=== PATIENT | male | born 1950 | race Caucasian/White ===

== ENCOUNTER → 2018-09-02 | Outpatient (CLI) | payer MEDICARE, BC | END | disposition home or self-care (01) | LOC: MRI 09:16 | PROVIDERS: ATTEND Internal Medicine Critical Care Medicine | DX: S83.241A Other tear of medial meniscus, current injury, right knee, initial encounter (principal); S83.242A Other tear of medial meniscus, current injury, left knee, initial encounter; M94.261 Chondromalacia, right knee; M67.462 Ganglion, left knee; X58.XXXA Exposure to other specified factors, initial encounter; Y93.89 Activity, other specified; Y92.89 Other specified places as the place of occurrence of the external cause; Y99.8 Other external cause status | CPT/HCPCS: 73721 ==

== ENCOUNTER 2018-11-15 05:13 | Day surgery (SDC) | payer MEDICARE, BC ==
[~2018-11-15] VITALS: Ht 182.9 cm; Wt 89.8 kg
[~2018-11-15 05:13] MED LIST: ALIS300T PO; ASPI-1393 PO; CLON0.2T PO; DILT360T13 PO; FURO40TA5 PO; MINO10TA PO; POTA20TA82 PO; PRED2.5T4 PO
[2018-11-15] MEDS ORDERED: LACTATED RINGERS 1,000 ML IV SCH (06:30)
[2018-11-15 06:40] LABS: INR 1.1; PARTIAL THROMBOPLASTIN TIME 33.1 sec (23.4-31.0)
[2018-11-15] MEDS ORDERED: BUPIVACAINE HCL 0.5% (5MG/ML) 50ML ONE (07:07)
[2018-11-15] MEDS ORDERED: SKIN ADHESIVE 0.7 GM EA TOP ONE (07:07)
[2018-11-15] MEDS ORDERED: FENTANYL CITRATE/PF 50MCG/ML 2ML VIAL ONE (07:16)
[2018-11-15] MEDS ORDERED: NEOSTIGMINE METHYLSULFATE 1MG/ML 10 ML VIAL ONE (07:17)
[2018-11-15] MEDS ORDERED: PROPOFOL 200MG/20ML VIAL IV ONE (07:17)
[2018-11-15] MEDS ORDERED: GLYCOPYRROLATE 0.2 MG/ML 2ML VIAL ONE ×3 (07:17→08:43)
[2018-11-15] MEDS ORDERED: MIDAZOLAM HCL 2 MG/2 ML VIAL ONE (07:17)
[2018-11-15] MEDS ORDERED: ROCURONIUM BROMIDE 10MG/ML VIAL 5ML IV ONE (07:17)
[2018-11-15] MEDS ORDERED: ONDANSETRON HCL 4MG/2ML INJ ONE (07:29)
[2018-11-15] MEDS ORDERED: DEXAMETHASONE 4MG/ML 1ML VIAL ONE (07:29)
[2018-11-15] MEDS ORDERED: MEPERIDINE HCL/PF 25MG/ML CPJ IV PRN (08:00)
[2018-11-15] MEDS ORDERED: HYDROMORPHONE HCL/PF 2MG/ML CPJ IV PRN (08:00)
[2018-11-15] MEDS ORDERED: ONDANSETRON HCL 4MG/2ML INJ IV PRN (08:00)
[2018-11-15] MEDS ORDERED: LABETALOL 5MG/ML SYR 20 MG/4 ML SYRINGE IV PRN (08:00)
[2018-11-15] MEDS ORDERED: HYDROMORPHONE HCL/PF 2MG/ML (OR) ONE (09:01)
== END 2018-11-15 11:15 | disposition home or self-care (01) ==
LOC: OR 05:13
PROVIDERS: ATTEND Surgery
DX: K40.90 Unilateral inguinal hernia, without obstruction or gangrene, not specified as recurrent (principal); I10 Essential (primary) hypertension; G47.33 Obstructive sleep apnea (adult) (pediatric); Z79.899 Other long term (current) drug therapy; Z88.5 Allergy status to narcotic agent; I44.1 Atrioventricular block, second degree
CPT/HCPCS: 36415; 49650; 80051; 85610; 85730; C1781; G0168; J1100; J1170; J2250; J2405; J2704; J2710; J3010; J3490

== ENCOUNTER → 2019-04-01 | Outpatient (CLI) | payer MEDICARE, BC | END | disposition home or self-care (01) | LOC: CT 07:53 | PROVIDERS: ATTEND Internal Medicine Critical Care Medicine | DX: N28.1 Cyst of kidney, acquired (principal); K40.90 Unilateral inguinal hernia, without obstruction or gangrene, not specified as recurrent; K91.30 Postprocedural intestinal obstruction, unspecified as to partial versus complete | CPT/HCPCS: 74176 ==

== ENCOUNTER → 2019-10-28 | Outpatient (CLI) | payer MEDICARE, BC ==
[~2019-10-28] MED LIST changes: -ASPI-1393 PO; +ASPI-1497 PO; +BARIUM SULFATE 450ML ORAL SUSP ONE
== END | disposition home or self-care (01) ==
LOC: CT 07:28 → EDBD 10:00
PROVIDERS: ATTEND Internal Medicine Critical Care Medicine
DX: J43.9 Emphysema, unspecified (principal); R10.9 Unspecified abdominal pain; R63.4 Abnormal weight loss; I25.10 Atherosclerotic heart disease of native coronary artery without angina pectoris; N28.1 Cyst of kidney, acquired; K40.00 Bilateral inguinal hernia, with obstruction, without gangrene, not specified as recurrent; K56.41 Fecal impaction
CPT/HCPCS: 74176

== ENCOUNTER → 2019-12-13 | Outpatient (CLI) | payer MEDICARE, BC ==
[~2019-12-13] MED LIST changes: -BARIUM SULFATE 450ML ORAL SUSP ONE
== END | disposition home or self-care (01) ==
LOC: LAB 07:18
PROVIDERS: ATTEND Internal Medicine Critical Care Medicine
DX: Z11.59 Encounter for screening for other viral diseases (principal); E04.9 Nontoxic goiter, unspecified
CPT/HCPCS: 87635

== ENCOUNTER → 2019-12-15 | Outpatient (CLI) | payer MEDICARE, BC | END | disposition home or self-care (01) | LOC: US 07:20 | PROVIDERS: ATTEND Internal Medicine Critical Care Medicine | DX: E04.1 Nontoxic single thyroid nodule (principal) | CPT/HCPCS: 76536 ==

== ENCOUNTER → 2022-12-29 | Outpatient (CLI) | payer MEDICARE, BC ==
[~2022-12-29] MED LIST changes: +POTA-205 PO; -POTA20TA82 PO
== END | disposition home or self-care (01) ==
LOC: RAD 10:41
PROVIDERS: ATTEND Internal Medicine Critical Care Medicine
DX: D86.9 Sarcoidosis, unspecified (principal)
CPT/HCPCS: 71046

== ENCOUNTER → 2023-03-02 | Outpatient (CLI) | payer MEDICARE, BC | END | disposition home or self-care (01) | LOC: RAD 10:43 | PROVIDERS: ATTEND Internal Medicine Critical Care Medicine | DX: Z01.818 Encounter for other preprocedural examination (principal) | CPT/HCPCS: 71046 ==

== ENCOUNTER → 2023-03-02 | Outpatient (CLI) | payer MEDICARE, BC ==
[2023-03-02 11:52] LABS: BASOPHILS % 0.9 % (0.0-2.0); EOSINOPHILS % 4.7 % (0.0-5.0); HEMOGLOBIN. 12.5 g/dL (14.0-18.0); LYMPHOCYTES % 36.6 % (20.0-50.0); MEAN CORPUSCULAR HEMOGLOBIN 27.4 pg (28.0-32.0); MEAN CORPUSCULAR HGB CONC 32.8 g/dL (31.0-37.0); MEAN CORPUSCULAR VOLUME 83.6 fL (80.0-94.0); MEAN PLATELET VOLUME 8.1 fl (7.4-10.4); MONOCYTES % 13.4 % (2.0-8.0); NEUTROPHILS % 44.4 % (40.0-76.0); PLATELET 176 x1000/uL (130-400); RED BLOOD CELL COUNT 4.55 mill/uL (4.7-6.1); RED CELL DISTRIBUTION WIDTH 14.1 % (11.6-14.6); WHITE BLOOD COUNT 4.4 x1000/uL (4.5-11.0)
[2023-03-02 12:00] LABS: PARTIAL THROMBOPLASTIN TIME 34.1 sec (23.4-31.0); PROTHROMBIN TIME 10.9 sec (9.6-11.0)
[2023-03-02 12:03] LABS: CHLORIDE 107 mEq/L (98-107); INDEX HEMOLYSI 1 (1-3); INDEX ICTERIC 1 (1-4); INDEX LIPEMIC 1 (1-3); POTASSIUM 3.6 mEq/L (3.5-5.1); SODIUM 141 mEq/L (136-145)
[2023-03-02 12:11] LABS: ALANINE AMINOTRANSFERASE 20 IU/L (13-61); ALBUMIN 4.4 g/dL (3.4-5.0); ASPARTATE AMINOTRANSFERASE 21 IU/L (15-37); BILIRUBIN TOTAL 0.8 mg/dL (0.1-1.0); CALCIUM 8.9 mg/dL (8.5-10.1); CARBON DIOXIDE 30 mEq/L (21-32); CREATININE 1.1 mg/dL (0.6-1.3); GLUCOSE 92 mg/dL (70-105); UREA NITROGEN BLOOD 19 mg/dL (7-21)
== END | disposition home or self-care (01) ==
LOC: LAB 10:29
PROVIDERS: ATTEND Internal Medicine Critical Care Medicine
DX: I48.20 Chronic atrial fibrillation, unspecified (principal); D50.9 Iron deficiency anemia, unspecified; D68.2 Hereditary deficiency of other clotting factors
CPT/HCPCS: 36415; 80053; 85025

== ENCOUNTER → 2023-03-11 | Day surgery (SDC) | payer MEDICARE, BC ==
[~2023-03-11] VITALS: Ht 182.9 cm; Wt 76.7 kg
[~2023-03-11] MED LIST changes: +BUPIVACAINE HCL/PF 0.5% (5MG/ML) 10ML ONE; +DEXAMETHASONE 4MG/ML 1ML VIAL ONE; +FENTANYL CITRATE/PF 50MCG/ML 2ML VIAL ONE; +HYDROMORPHONE HCL/PF 2MG/ML CPJ IV PRN; +LABETALOL 5MG/ML SYR 20 MG/4 ML SYRINGE IV PRN; +LACTATED RINGERS 1,000 ML IV SCH; +LIDOCAINE HCL 1% 10 MG/ML 10ML VIAL ONE; +MEPERIDINE HCL/PF 25MG/ML CPJ IV PRN; +MIDAZOLAM HCL 2 MG/2 ML VIAL ONE; +NIFE-33 PO; +ONDANSETRON HCL 4MG/2ML INJ IV PRN; +ONDANSETRON HCL 4MG/2ML INJ ONE; +PROPOFOL 200MG/20ML VIAL IV ONE; +SKIN ADHESIVE 0.7 GM EA TOP ONE; +TEMA30CA PO; +TRIA1TAB92 PO
== END | disposition home or self-care (01) ==
LOC: OR 05:36
PROVIDERS: ATTEND Surgery
DX: K40.91 Unilateral inguinal hernia, without obstruction or gangrene, recurrent (principal); I10 Essential (primary) hypertension; G47.30 Sleep apnea, unspecified; Z79.899 Other long term (current) drug therapy; Z98.890 Other specified postprocedural states
CPT/HCPCS: 49520; J3010; J3490 ×2; J1100; J2250; J2405; J2704; A4217; Z7610 ×19; C1781

== ENCOUNTER → 2023-11-27 | Outpatient (CLI) | payer BC, MEDICARE ==
[~2023-11-27] MED LIST changes: -ASPI-1497 PO; -BUPIVACAINE HCL/PF 0.5% (5MG/ML) 10ML ONE; -CLON0.2T PO; -DEXAMETHASONE 4MG/ML 1ML VIAL ONE; -DILT360T13 PO; -FENTANYL CITRATE/PF 50MCG/ML 2ML VIAL ONE; -FURO40TA5 PO; -HYDROMORPHONE HCL/PF 2MG/ML CPJ IV PRN; -LABETALOL 5MG/ML SYR 20 MG/4 ML SYRINGE IV PRN; -LACTATED RINGERS 1,000 ML IV SCH; -LIDOCAINE HCL 1% 10 MG/ML 10ML VIAL ONE; -MEPERIDINE HCL/PF 25MG/ML CPJ IV PRN; -MIDAZOLAM HCL 2 MG/2 ML VIAL ONE; -ONDANSETRON HCL 4MG/2ML INJ IV PRN; -ONDANSETRON HCL 4MG/2ML INJ ONE; -PRED2.5T4 PO; -PROPOFOL 200MG/20ML VIAL IV ONE; -SKIN ADHESIVE 0.7 GM EA TOP ONE
== END | disposition home or self-care (01) ==
LOC: MRI 07:08
PROVIDERS: ATTEND Internal Medicine Critical Care Medicine
DX: R41.3 Other amnesia (principal); R41.0 Disorientation, unspecified
CPT/HCPCS: 70551

== ENCOUNTER → 2023-11-27 | Outpatient (CLI) | payer MEDICARE ==
[2023-11-27 10:09] LABS: BASOPHILS % 0.4 % (0.0-2.0); HEMATOCRIT. 40.2 % (42.0-52.0); HEMOGLOBIN. 13.1 g/dL (14.0-18.0); LYMPHOCYTES % 12.5 % (20.0-50.0); MEAN CORPUSCULAR HEMOGLOBIN 27.8 pg (28.0-32.0); MEAN CORPUSCULAR HGB CONC 32.6 g/dL (31.0-37.0); MEAN CORPUSCULAR VOLUME 85.2 fL (80.0-94.0); MEAN PLATELET VOLUME 7.9 fl (7.4-10.4); MONOCYTES % 2.8 % (2.0-8.0); NEUTROPHILS % 84.3 % (40.0-76.0); PLATELET 259 x1000/uL (130-400); RED BLOOD CELL COUNT 4.72 mill/uL (4.7-6.1); RED CELL DISTRIBUTION WIDTH 13.9 % (11.6-14.6); WHITE BLOOD COUNT 5.5 x1000/uL (4.5-11.0)
[2023-11-27 10:10] LABS: CARBON DIOXIDE 25 mEq/L (21-32); CHLORIDE 106 mEq/L (98-107); POTASSIUM 5.4 mEq/L (3.5-5.1); SODIUM 139 mEq/L (136-145)
[2023-11-27 10:11] LABS: CALCIUM 10.4 mg/dL (8.7-10.4)
[2023-11-27 10:14] LABS: TRIGLYCERIDE 46 mg/dL (0-150)
[2023-11-27 10:15] LABS: CREATININE 1.8 mg/dL (0.6-1.3)
[2023-11-27 10:16] LABS: GLUCOSE 115 mg/dL (70-105); UREA NITROGEN BLOOD 33 mg/dL (9-23)
[2023-11-27 10:17] LABS: ALANINE AMINOTRANSFERASE 31 IU/L (10-49); ASPARTATE AMINOTRANSFERASE 36 IU/L (<34); C REACTIVE PROTEIN HIGH SENS 2.43 mg/l (<1.00); LDL CHOLESTEROL 117 mg/dL (5-100)
[2023-11-27 10:18] LABS: BILIRUBIN DIRECT 0.3 mg/dL (<=3.0); BILIRUBIN TOTAL 0.9 mg/dL (0.1-1.0); CHOLESTEROL 200 mg/dL (<200); HDL CHOLESTEROL 72 mg/dL (>55); PROTEIN TOTAL 7.9 g/dL (6.0-8.3)
[2023-11-27 11:33] LABS: HEPATITIS B SURFACE ANTIGEN NEGATIVE (Negative)
[2023-11-27 11:54] LABS: HEPATITIS B CORE AB IGM NEGATIVE (Negative); HEPATITIS C AB NON REACTIVE (Neg) (Negative)
[2023-11-27 12:04] LABS: HEPATITIS A AB IGM NEGATIVE (Negative)
[2023-11-28 09:08] LABS: CARCINOEMBRYONIC AG - SEND OUT 1.4 ng/mL (0.0-4.7); PROSTATE SPECIFIC AG TOTAL 0.6 ng/mL (0.0-4.0)
[2023-11-29 15:10] LABS: TESTOSTERONE FREE 2.3 pg/mL (6.6-18.1)
== END | disposition home or self-care (01) ==
LOC: LAB 09:12
PROVIDERS: ATTEND Internal Medicine Critical Care Medicine
DX: Z12.5 Encounter for screening for malignant neoplasm of prostate (principal); Z13.1 Encounter for screening for diabetes mellitus; F32.A Depression, unspecified; D86.0 Sarcoidosis of lung; E11.9 Type 2 diabetes mellitus without complications; F32.9 Major depressive disorder, single episode, unspecified; R89.1 Abnormal level of hormones in specimens from other organs, systems and tissues; N40.1 Benign prostatic hyperplasia with lower urinary tract symptoms; R79.9 Abnormal finding of blood chemistry, unspecified; R79.89 Other specified abnormal findings of blood chemistry; Z86.59 Personal history of other mental and behavioral disorders; Z79.899 Other long term (current) drug therapy
CPT/HCPCS: 36415; 80053; 80061; 80076; 82164; 82306; 82378; 83036; 84153; 84402; 85025; 86141; 86705; 86709; 87340

== ENCOUNTER → 2024-04-21 | Outpatient (CLI) | payer MEDICARE | END | disposition home or self-care (01) | LOC: RAD 12:55 | PROVIDERS: ATTEND Internal Medicine Critical Care Medicine | DX: E04.1 Nontoxic single thyroid nodule (principal) | CPT/HCPCS: 76536 ==